=== PATIENT | male | born 1975 | race Caucasian/White ===

== ENCOUNTER 2019-05-27 17:12 | Inpatient (IN) ==
--- NOTE | 2019-05-27 17:37 | Emergency Department Note ---
Disposition Clinical Impression: Ischemic stroke Disposition: Admitted As Inpatient Condition: Good Referrals: NONE,PCP [Primary Care Provider] - Forms: ED Satisfaction Letter Time of Disposition: 21:45 Neuro HPI - General Chief Complaint: ED Neuro Symptoms/Deficit Stated Complaint: Neuro symptoms Time Seen by Provider: 05/27/19 17:19 Source: patient, other (Friends who accompanied him to hospital) Limitations: no limitations Nursing Notes Reviewed: Yes Vital Signs Reviewed: Yes - History of Present Illness HPI Narrative: Mr. Knox is a 44 yo man w/ uncomplicated PMH who presented to the ED on 05/27/19 for acute development of slurring, facial asymmetry noticed by friends at 1630 today when patient came over to their house. LKW 1700 yesterday (05/26). No one saw patient in the intervening time. He denies headache, vision changes, N/V, ataxia, LOC, CP, SOB, pain anywhere else in body. PMH of sinusitis. He is on suboxone. He has no history of cardiac events, stroke or neurological deficit. Social history significant for smoking 1-2 ppd [facility]. He denies alcohol or other drug use currently. - Related Data Home Medications: Home Medications Medication Instructions Recorded Confirmed Buprenorphine HCl/Naloxone HCl DAILY 05/27/19 [Suboxone 2 mg-0.5 mg Sl Film] Allergies/Adverse Reactions: Allergies Allergy/AdvReac Type Severity Reaction Status Date / Time sulfamethoxazole Allergy Anaphylaxis Verified 02/24/16 16:12 [From Bactrim] trimethoprim [From Bactrim] Allergy Anaphylaxis Verified 02/24/16 16:12 decongestion Allergy Anaphylaxis Uncoded 02/24/16 16:12 All systems ED: reviewed and negative except as stated. Neurological: Reports: weakness, confusion Past Medical History - Past Medical History Source: patient, obtained from family (Friends who accompanied him to ED), nursing notes reviewed Medical history: Reports: non-contributory Surgical history: Reports: sinus surgery Psychiatric history: Reports: no psych history - Social History Smoking Status: Current every day smoker Packs per day: 1-2 Smokeless Tobacco Status: No Alcohol use: Reports: none Drug use: Reports: other (Suboxone) Physical Exam PE Gen: Alert, responsive, anxious ENT: No mydriasis or miosis Left pupil brisk, right pupil sluggish constriction. Normal EOM bilaterally. No eyelid droop. Tongue deviation to right. No palpable trauma to head. Cardio: Regular rhythm, mild tachycardia on ausculation, no murmur. No chest wall tenderness on palpation, no cyanosis, no peripheral edema. Limbs well- perfused. Resp: Breath sounds equal and clear in all lung mcleod. No cough. No increased WoB. GI: Abdomen soft, nondistended, nontender in all quadrants. No bruit on auscultation. : No suprapubic tenderness or distention on palpation. No incontinence. MSK: No ecchymoses, no lesions, no rash on visual exam. Neuro: AOx2 - patient aware of name, age, unable to give or day of week/month. +aphasia, +dysphasia, +unilateral facial droop with forehead sparing, +strength 3/5 on RUE. LUE, RLE, LLE 5/5. No obvious sensory deficits. NIHSS 5. Psych: Appropriate affect - General Limitations: no limitations General appearance: alert, in no apparent distress Course Course Narrative: Presentation concerning for stroke. LKW outside TPA window as patient presented to ED about 23 hours after last known well. EKG, BMP, CBC ordered to rule out other causes of neurological deficits. CT head w/o contrast ordered to evaluate for stroke. Plan to admit patient with CT-A followup if initial CT negative for hemorrhage. BMP, CBC not significant. Initial CT positive for left frontal lobe and left insular cortex infarct. CT-A ordered, which was negative. Consulted with hospitalist personal development educator, Dr. Hinson, who agreed with plan to admit and requested UA plus urine toxicology, which was ordered. - Reevaluation(s) Reevaluation #1: Discussed negative CTA results in light of Dr. Morgan's earlier discussion of acute infarct on non-contrast CT head. Patient given option to stay here or be transferred to facility such as [facility]; he was informed that another facility would have the ability to do more invasive interventions if needed. Mr. Knox said he understood, and wanted to remain here at [facility]. Time: 21:35 Reevaluation #2: Consulted with hospitalist personal development educator, Dr. Tijerina, who agreed to admit patient and also requested a UA with tox screen. Time: 21:51 Vital Signs Temperature 97.9 F 05/27/19 17:13 Pulse Rate 106 07/24/19 17:13 Respiratory Rate 16 05/27/19 17:13 Blood Pressure 176/96 05/27/19 17:13 O2 Sat by Pulse Oximetry 99 05/27/19 17:13 Temperature 97.9 F 05/27/19 17:19 Pulse Rate 86 05/27/19 20:20 Respiratory Rate 18 05/27/19 20:20 Blood Pressure 123/83 05/27/19 20:20 O2 Sat by Pulse Oximetry 96 05/27/19 20:20 Oxygen Delivery Oxygen Delivery Room Air Neuro Symptoms/Deficit - Medical Records Medical records reviewed: Yes I reviewed the patient's medical records. - Lab Data Lab results reviewed: Yes I reviewed the patient's lab results. Result diagrams: 05/27/19 17:41 05/27/19 17:41 Lab Results 05/27/19 05/27/19 05/27/19 Range/Units 17:22 17:41 17:41 WBC 11.3 H (4.3-11.1) K/mcL RBC 5.21 (4.19-5.50) M/mcL Hgb 14.0 (12.9-16.9) g/dL Hct 43.6 (37.5-50.1) % MCV 83.7 (83.0-100.0) fL MCH 26.9 L (28.0-33.3) pg MCHC 32.1 (31.6-35.5) g/dL RDW 14.4 (11.5-14.5) % Plt Count 322 (140-400) K/mcL MPV 9.8 (9.4-12.4) fL PT (9.4-12.1) Seconds INR APTT (26.0-36.0) Seconds Sodium 138 (136-145) mEq/L Potassium 3.9 (3.5-5.1) mEq/L Chloride 102 (98-107) mEq/L Carbon Dioxide 24 (23-29) mEq/L BUN 8 (6-20) mg/dL Creatinine 0.84 (0.70-1.30) mg/dL Est GFR ( Amer) > 60 (> 60) Est GFR (Non-Af Amer) > 60 (> 60) BUN/Creatinine Ratio 10 (6-26) Glucose 113 H (70-105) mg/dL POC Glucose 117 H (70-99) mg/dL Calculated Osmolality 285 (280-300) Calcium 9.6 (8.6-10.3) mg/dL 05/27/19 Range/Units 17:41 WBC (4.3-11.1) K/mcL RBC (4.19-5.50) M/mcL Hgb (12.9-16.9) g/dL Hct (37.5-50.1) % MCV (83.0-100.0) fL MCH (28.0-33.3) pg MCHC (31.6-35.5) g/dL RDW (11.5-14.5) % Plt Count (140-400) K/mcL MPV (9.4-12.4) fL PT 12.6 H (9.4-12.1) Seconds INR 1.1 APTT 31.7 (26.0-36.0) Seconds Sodium (136-145) mEq/L Potassium (3.5-5.1) mEq/L Chloride (98-107) mEq/L Carbon Dioxide (23-29) mEq/L BUN (6-20) mg/dL Creatinine (0.70-1.30) mg/dL Est GFR ( Amer) (> 60) Est GFR (Non-Af Amer) (> 60) BUN/Creatinine Ratio (6-26) Glucose (70-105) mg/dL POC Glucose (70-99) mg/dL Calculated Osmolality (280-300) Calcium (8.6-10.3) mg/dL - Radiology Data Radiology results reviewed: Yes I reviewed the patient's radiology results. Head CT 05/27/19 17:29 IMPRESSION: Area of acute infarct involving the left insular cortex and left frontal lobe. No midline shift or acute hemorrhage. The report was called and discussed with Dr. Gonzalez of the emergency department 05/27/2019 at 7:27 p.m. D/ / 05/27/2019 19:34:29 June Mccormack MD / naye Interpreting Provider: June Mccormack MD Head CT 05/27/19 17:29 IMPRESSION: Area of acute infarct involving the left insular cortex and left frontal lobe. No midline shift or acute hemorrhage. The report was called and discussed with Dr. Gonzalez of the emergency department 05/27/2019 at 7:27 p.m. D/ / 05/27/2019 19:34:29 June Mccormack MD / naye Interpreting Provider: June Mccormack MD Head CTA 05/27/19 19:28 IMPRESSION: Unremarkable CTA of the neck. D/ / George Bond MD / George Bond MD Interpreting Provider: George Bond MD Neck CTA 05/27/19 19:28 IMPRESSION: Unremarkable CTA of the neck. D/ / George Bond MD / George Bond MD Interpreting Provider: George Bond MD - EKG Data EKG attestation: Yes I reviewed and interpreted this EKG. EKG shows normal: sinus rhythm Rate: tachycardia Rhythm: NSR [place]/QRS: normal Voltage: c/w atrial hypertrophy P Waves: LAE, KRISHNA When compared to previous EKG there are: previous EKG unavailable NIH Stroke Scale - Level of Consciousness LOC: Alert () - LOC Questions LOC Questions: Answers one correctly - LOC Commands LOC Commands: Performs both correctly - Best Gaze Best Gaze: Normal - Visual Visual: No visual loss - Facial Palsy Facial Palsy: Normal - Motor Arms Motor Arm-Left: No drift for 10 seconds Motor Arm-Right: Some effort against gravity, limb drifts to bed - Motor Legs Motor Leg-Left: No drift for 5 seconds Motor Leg-Right: No drift for 5 seconds - Limb Ataxia Limb Ataxia: Normal, No Ataxia - Sensory Sensory: Normal - Best Language Best Language: Mild to moderate aphasia. Examiner can identify picture from response - Dysarthria Dysarthria: Mild, slurs some words - Extinction and Inattention Extinction and Inattention: Normal - NIHSS Total Score NIHSS Total Score: 5 - Pupil Exam Left Pupil Reaction: Brisk Pupil Size: 3 Right Pupil Reaction: Sluggish Pupil Size: 3 TPA Checklist - LKW: 3-4.5 hrs Add. Warnings/Precautions Patient/family understanding: The patient/family members have been counseled and understood the risk, benefit, and alternatives of treatment.
[2019-05-27 17:59] LABS: Hematocrit 43.6 % (37.5-50.1); Mean Corpuscular HGB Conc 32.1 g/dL (31.6-35.5); Mean Corpuscular Hemoglobin 26.9 pg (28.0-33.3); Mean Corpuscular Volume 83.7 fL (83.0-100.0); Mean Platelet Volume 9.8 fL (9.4-12.4); Platelet Count 322 K/mcL (140-400); Red Blood Count 5.21 M/mcL (4.19-5.50); Red Cell Distribution Width 14.4 % (11.5-14.5); White Blood Count 11.3 K/mcL (4.3-11.1)
[2019-05-27 18:07] LABS: INR 1.1; Prothrombin Time 12.6 Seconds (9.4-12.1)
[2019-05-27 18:10] LABS: Activated Partial Thrombo Time 31.7 Seconds (26.0-36.0)
[2019-05-27 18:15] LABS: BUN/Creatinine Ratio 10 (6-26); Blood Urea Nitrogen 8 mg/dL (6-20); Calcium 9.6 mg/dL (8.6-10.3); Carbon Dioxide 24 mEq/L (23-29); Chloride 102 mEq/L (98-107); Glucose 113 mg/dL (70-105); Osmolality,Calculated 285 (280-300); Potassium 3.9 mEq/L (3.5-5.1); Sodium 138 mEq/L (136-145); eGFR For African Americans > 60 (> 60); eGFR For Non-African Americans > 60 (> 60)
[2019-05-27] MEDS ORDERED: Isovue-370 500 ML BOTTLE IVP ONE (19:28)
--- NOTE | 2019-05-27 20:19 | Emergency Department Note ---
Disposition Clinical Impression: Ischemic stroke Disposition: Admitted As Inpatient Condition: Good Referrals: NONE,PCP [Primary Care Provider] - Forms: ED Satisfaction Letter Time of Disposition: 20:33 General Adult HPI - General Chief complaint: ED Neuro Symptoms/Deficit Stated complaint: Neuro symptoms Time Seen by Provider: 05/27/19 17:19 Source: patient, family Limitations: no limitations - History of Present Illness Pain Scale: 0 - Related Data Home Medications Medication Instructions Recorded Confirmed Buprenorphine HCl/Naloxone HCl DAILY 05/27/19 [Suboxone 2 mg-0.5 mg Sl Film] Allergies Allergy/AdvReac Type Severity Reaction Status Date / Time sulfamethoxazole Allergy Anaphylaxis Verified 02/24/16 16:12 [From Bactrim] trimethoprim [From Bactrim] Allergy Anaphylaxis Verified 02/24/16 16:12 decongestion Allergy Anaphylaxis Uncoded 02/24/16 16:12 Past Medical History - Past Medical History Medical history: Reports: non-contributory Surgical history: Reports: sinus surgery Psychiatric history: Reports: no psych history - Social History Smoking Status: Current every day smoker Smokeless Tobacco Status: No Alcohol use: Reports: none Drug use: Reports: other (Suboxone) Physical Exam - General Limitations: no limitations General appearance: alert, in no apparent distress Course Vital Signs Temperature 97.9 F 05/27/19 17:13 Pulse Rate 106 05/27/19 17:13 Respiratory Rate 16 05/27/19 17:13 Blood Pressure 176/96 05/27/19 17:13 O2 Sat by Pulse Oximetry 99 05/27/19 17:13 Temperature 97.9 F 05/27/19 17:19 Pulse Rate 86 05/27/19 20:20 Respiratory Rate 18 05/27/19 20:20 Blood Pressure 123/83 05/27/19 20:20 O2 Sat by Pulse Oximetry 96 05/27/19 20:20 Oxygen Delivery Oxygen Delivery Room Air Medical Decision Making - Lab Data Result diagrams: 05/27/19 17:41 05/27/19 17:41 Lab Results 05/27/19 05/27/19 05/27/19 Range/Units 17:22 17:41 17:41 WBC 11.3 H (4.3-11.1) K/mcL RBC 5.21 (4.19-5.50) M/mcL Hgb 14.0 (12.9-16.9) g/dL Hct 43.6 (37.5-50.1) % MCV 83.7 (83.0-100.0) fL MCH 26.9 L (28.0-33.3) pg MCHC 32.1 (31.6-35.5) g/dL RDW 14.4 (11.5-14.5) % Plt Count 322 (140-400) K/mcL MPV 9.8 (9.4-12.4) fL PT (9.4-12.1) Seconds INR APTT (26.0-36.0) Seconds Sodium 138 (136-145) mEq/L Potassium 3.9 (3.5-5.1) mEq/L Chloride 102 (98-107) mEq/L Carbon Dioxide 24 (23-29) mEq/L BUN 8 (6-20) mg/dL Creatinine 0.84 (0.70-1.30) mg/dL Est GFR ( Amer) > 60 (> 60) Est GFR (Non-Af Amer) > 60 (> 60) BUN/Creatinine Ratio 10 (6-26) Glucose 113 H (70-105) mg/dL POC Glucose 117 H (70-99) mg/dL Calculated Osmolality 285 (280-300) Calcium 9.6 (8.6-10.3) mg/dL 05/27/19 Range/Units 17:41 WBC (4.3-11.1) K/mcL RBC (4.19-5.50) M/mcL Hgb (12.9-16.9) g/dL Hct (37.5-50.1) % MCV (83.0-100.0) fL MCH (28.0-33.3) pg MCHC (31.6-35.5) g/dL RDW (11.5-14.5) % Plt Count (140-400) K/mcL MPV (9.4-12.4) fL PT 12.6 H (9.4-12.1) Seconds INR 1.1 APTT 31.7 (26.0-36.0) Seconds Sodium (136-145) mEq/L Potassium (3.5-5.1) mEq/L Chloride (98-107) mEq/L Carbon Dioxide (23-29) mEq/L BUN (6-20) mg/dL Creatinine (0.70-1.30) mg/dL Est GFR ( Amer) (> 60) Est GFR (Non-Af Amer) (> 60) BUN/Creatinine Ratio (6-26) Glucose (70-105) mg/dL POC Glucose (70-99) mg/dL Calculated Osmolality (280-300) Calcium (8.6-10.3) mg/dL Attestation Statement - Attestation Attestation: I reviewed the residents documentation and agree with the residents assessment and plan of care. I have personally had face to face time with the patient. (Brief History, Brief Exam, and MDM) I personally supervised and was present for the moy/critical portions of the following procedures completed by the resident: EKG 44 year old male presents to the eD with complaints of right sided facial droop and aphasia that has been woresninr with LWK being yestesrday at 1700. Patient has been stable in his neuro defecits without improvement. It apppears that he had a stroke in the left front and insular area which would correlate with his symptoms. WE will add a CTA head and neck to his workup to help with decision in disposition to [facility] or admission here. ASA given.
[2019-05-27] MEDS ORDERED: Aspirin 325 MG TABLET PO ONE (20:33)
[2019-05-27 22:50] LABS: Bilirubin,Urine Negative (Negative); Blood,Urine Negative (Negative); Clarity,Urine Clear (Clear); Color,Urine Yellow (Yellow); Glucose,Urine (UA) Normal (Normal); Ketones,Urine Negative (Negative); Leukocyte Esterase,Urine Negative (Negative); Nitrite,Urine Negative (Negative); Protein,Urine Negative (Neg-Trace); Specific Gravity,Urine > 1.030 (1.010-1.025); Urobilinogen,Urine Normal (Normal)
[2019-05-27 23:06] LABS: Amphetamine Screen,Urine Negative ng/mL (Cutoff=1000); Barbiturate Screen,Urine Negative ng/mL (Cutoff=200); Benzodiazepines Screen,Urine Negative ng/mL (Cutoff=200); Cannabinoid Screen,Urine Negative ng/mL (Cutoff = 50); Cocaine Screen,Urine Negative ng/mL (Cutoff= 300); Opiate Screen,Urine Negative ng/mL (Cutoff=300); Phencyclidine Screen,Urine Negative ng/mL (Cutoff=25)
[2019-05-28] MEDS ORDERED: Naloxone 0.4 MG/ML INJ IVP PRN (02:16)
[2019-05-28] MEDS ORDERED: Ondansetron 4 MG/2 ML VIAL IVP PRN (02:16)
[2019-05-28] MEDS: 0.9 % Sodium Chloride w KCl 20 MEQ/1,000 ML MLS IVC SCH ×2 (02:59→18:32)
--- NOTE | 2019-05-28 03:39 | Internal Med History&Physical ---
Date of Encounter: 05/28/19 Time of Encounter: 01:35 Internal Medicine - H&P: HPI Chief complaint: right arm weakness; slurred speech Admitted From: Emergency Dept Plans for Post Hospital Care: Home History of present illness: Mr. Knox is a 44 year old male [facility]. He presented 24 hours after last known well with complaints of slurred speech, facial droop, and right-sided weakness. CT of the head was negative as well as CTA of the head and neck. He was deemed not an interventional candidate per ER and was admitted to the hospitalist service. Upon my assessment of the patient, patient states his symptoms started roughly 24 hours prior to presenting to ER. He denies any prior history of stroke. He denies any chronic health problems such as diabetes, heart disease, hypertension, or any history of arrhythmias. He is a former drug abuser but has been clean for roughly 7 months. He is maintained currently on Suboxone. I requested a urine drug screen in the ER which was negative except for buprinorphine. Regarding his drugs, he did not ever inject any medications. However, he did snort and orally ingested "all kinds of street drugs" in the past. He denies any prior history of heart problems from drugs. Family history is negative for any strokes. Past Med Surg Social Fam HX - Past Medical History Attestation: Yes The following information was validated with the patient. Source: patient, old records reviewed Medical history: no medical history Psychiatric history: no psych history - Past Surgical History Surgical History: sinus surgery - Social History Smoking Status: Current every day smoker (Currently on Suboxone) Packs per day: 1-2 Smokeless Tobacco Status: No Alcohol use: none Drug use: other (former drug abuse) Current living situation: Home Activity Level: Independent ambulation Recent Out of Country Travel Within the Last 8 Weeks: No - Family History Mother Living Status: Still Living Father Living Status: Still Living Internal Medicine - H&P: Meds Unable To Obtain [Unable to Obtain] 05/27/19 [History] Allergy/AdvReac Type Severity Reaction Status Date / Time sulfamethoxazole Allergy Anaphylaxis Verified 02/24/16 16:12 [From Bactrim] trimethoprim [From Bactrim] Allergy Anaphylaxis Verified 02/24/16 16:12 decongestion Allergy Anaphylaxis Uncoded 02/24/16 16:12 - Constitutional Constitutional: no chills, no fever(s), no night sweats - EENT Eyes: no blurry vision, no change in vision Ears: no ear pain, no tinnitus Nose, mouth and throat: no nasal congestion, no sinus pressure, no sore throat - Cardiovascular Cardiovascular ROS IM: no chest pain, no dyspnea, no dyspnea on exertion, no orthopnea, no syncope - Respiratory Respiratory: no cough, no dyspnea on exertion, no chest congestion, no excessive phlegm production, no change in phlegm color - Gastrointestinal Gastrointestinal: no abdominal pain, no diarrhea, no hematemesis, no hematochezia, no melena, no nausea, no vomiting - Genitourinary Genitourinary ROS male: no dysuria, no flank pain, no hematuria - Musculoskeletal Musculoskeletal ROS IM: no arthralgias, no back pain - Integumentary Integumentary IM: no rash, no jaundice - Neurological Neurological ROS: abnormal speech, focal weakness, no convulsions, no disequilibrium, no dizziness, no headache(s) - Psychiatric Psychiatric: no anxiety, no depression - Endocrine Endocrine IM: no cold intolerance, no heat intolerance, no polydipsia, no polyphagia, no polyuria - Allergic/Immunologic Allergic/Immunologic: no wheezing, no GI upset with certain foods - Constitutional Vitals: Temp Pulse Resp BP Pulse Ox 98.0 F 98 16 140/89 99 05/28/19 01:34 05/28/19 01:34 05/28/19 01:34 05/28/19 01:34 05/28/19 01:13 General appearance: Present: cooperative, A&O X 3, pleasant, no acute distress, answers questions appropriately Exam: see below - Head Head exam: Present: atraumatic, normal inspection - Eye Eye exam: Present: EOMI, PERRL. Absent: scleral icterus Pupils: Present: normal accommodation - ENT ENT exam: Present: mucous membranes dry, normal exam, normal oropharynx - Neck Neck exam general surgery: Present: full ROM, supple, trachea midline. Absent: tenderness, nuchal rigidity, thyromegaly - Respiratory Respiratory exam: Present: CTAB. Absent: chest wall tenderness, rales, rhonchi, wheezes - Cardiovascular Cardiovascular exam: Present: RRR, +S1, +S2. Absent: diastolic murmur, systolic murmur - GI/Abdominal GI/Abdominal exam: Present: normal bowel sounds, soft. Absent: guarding, hepatomegaly, mass, rebound, splenomegaly, tenderness - Extremities Exam Extremities exam: Present: full ROM, normal capillary refill, warm, radial pulses palpable and symmetrical. Absent: calf tenderness, joint swelling, pedal edema, tenderness - Back Exam Back exam: Present: normal inspection. Absent: CVA tenderness (L), CVA tenderness (R) - Neurological Exam Neurological exam: Present: alert, oriented X3, facial droop, speech deficit. Absent: strengths equal and symetr throughout (right arm weakness; parasthesias) - Psychiatric Psychiatric exam: Present: normal affect, normal mood - Skin Skin exam: Present: dry, intact, warm Internal Med - H&P Results - Labs CBC & Chem 7: 05/27/19 17:41 05/27/19 17:41 Labs: Short CBC 05/27/19 Range/Units 17:41 WBC 11.3 H (4.3-11.1) K/mcL Hgb 14.0 (12.9-16.9) g/dL Hct 43.6 (37.5-50.1) % Plt Count 322 (140-400) K/mcL BMP 05/27/19 17:41 Sodium 138 Potassium 3.9 Chloride 102 Carbon Dioxide 24 BUN 8 Creatinine 0.84 Glucose 113 H Calcium 9.6 Urine 05/27/19 Range/Units 22:40 Urine Color Yellow (Yellow) Urine Clarity Clear (Clear) Urine pH 6.0 (5.0-8.0) pH Units Ur Specific [place] > 1.030 H (1.010-1.025) Urine Protein Negative (Neg-Trace) mg/dL Urine Glucose (UA) Normal (Normal) mg/dL - EKG Data -: EKG Interpreted by Myself - EKG Data Prior EKG available for review: no EKG comments: 05/28/19 04:02 LUCIANO WERNER - Impressions ITS Impressions Head CT 05/27/19 17:29 IMPRESSION: Area of acute infarct involving the left insular cortex and left frontal lobe. No midline shift or acute hemorrhage. The report was called and discussed with Dr. Gonzalez of the emergency department 05/27/2019 at 7:27 p.m. D/ / 05/27/2019 19:34:29 June Mccormack MD / lgray Interpreting Provider: June Mccormack MD Head CTA 05/27/19 19:28 IMPRESSION: Unremarkable CTA of the neck. D/ / George Bond MD / George Bond MD Interpreting Provider: George Bond MD Neck CTA 05/27/19 19:28 IMPRESSION: Unremarkable CTA of the neck. D/ / George Bond MD / George Bond MD Interpreting Provider: George Bond MD - Diagnostic Studies CT scan - head Status: image reviewed by me (acute frontal lobe infarct) - Assessment and Plan (1) Ischemic stroke Current Visit: Yes Status: Acute Assessment and plan: 1. Will proceed with stroke protocol. 2. Consult PT/OT/ST, and neurology. 3. Strict NPO until ST consult. 4. MRI brain, ECHO ordered. 5. Consult neurology and social services counselor. 6. Rectal aspirin for now until cleared to take PO meds. (2) Illicit drug use Current Visit: Yes Status: Chronic Assessment and plan: 1. UDS negative except for Suboxone. 2. Will need to confirm dose and resume in order to avoid withdrawal. 3. Concern for cardiomyopathy given history of drug abuse; proced with ECHO and stroke work up as noted above. (3) DVT prophylaxis Current Visit: Yes Status: Acute Assessment and plan: 1. Heparin SQ.
[2019-05-28 03:45] LABS: Basophils % 0.4 %; Eosinophils # 0.2 K/mcL (0.0-0.6); Eosinophils % 2.1 %; Hematocrit 41.1 % (37.5-50.1); Hemoglobin 13.3 g/dL (12.9-16.9); Immature Granulocytes % 0.2 % (0-4); Lymphocytes # 3.4 K/mcL (0.6-4.6); Lymphocytes % 36.3 %; Mean Corpuscular HGB Conc 32.4 g/dL (31.6-35.5); Mean Corpuscular Hemoglobin 27.4 pg (28.0-33.3); Mean Corpuscular Volume 84.7 fL (83.0-100.0); Monocytes # 0.5 K/mcL (0.0-1.3); Monocytes % 5.7 %; Neutrophils # 5.2 K/mcL (1.6-8.9); Platelet Count 281 K/mcL (140-400); Red Blood Count 4.85 M/mcL (4.19-5.50); Red Cell Distribution Width 14.1 % (11.5-14.5); Segmented Neutrophils % 55.3 %; White Blood Count 9.4 K/mcL (4.3-11.1)
[2019-05-28 03:54] LABS: INR 1.2; Prothrombin Time 13.2 Seconds (9.4-12.1)
[2019-05-28 03:56] LABS: BUN/Creatinine Ratio 13 (6-26); Blood Urea Nitrogen 9 mg/dL (6-20); Carbon Dioxide 23 mEq/L (23-29); Chloride 108 mEq/L (98-107); Glucose 94 mg/dL (70-105); Potassium 3.5 mEq/L (3.5-5.1); Sodium 138 mEq/L (136-145); eGFR For African Americans > 60 (> 60); eGFR For Non-African Americans > 60 (> 60)
[2019-05-28 03:57] LABS: Activated Partial Thrombo Time 32.9 Seconds (26.0-36.0); Alanine Aminotransferase 7 Units/L (7-52); Albumin 3.9 g/dL (3.5-5.7); Albumin/Globulin Ratio 1.3 (1.1-2.2); Alkaline Phosphatase 60 Units/L (34-104); Aspartate Amino Transferase 8 Units/L (13-39); Bilirubin,Total 0.7 mg/dL (0.3-1.0); Calcium 9.1 mg/dL (8.6-10.3); Chol/HDL Ratio 7.2 (0-4.9); Cholesterol 151 mg/dL (< 200); Globulin 2.9 g/dL (2.4-3.5); HDL Cholesterol 21 mg/dL (40-59); LDL Cholesterol,Calculated 103 mg/dL (0-99); Osmolality,Calculated 284 (280-300); Total Protein 6.8 g/dL (6.4-8.9); Triglycerides 134 mg/dL (< 150)
[2019-05-28] MEDS: *HR* Heparin 5,000 UNIT/ML VIAL SQ SCH ×2 (06:50→18:31)
[2019-05-28 09:55] LABS: Chol/HDL Ratio 7.2 (0-4.9); Cholesterol 158 mg/dL (< 200); HDL Cholesterol 22 mg/dL (40-59); LDL Cholesterol,Calculated 112 mg/dL (0-99); Triglycerides 120 mg/dL (< 150); Troponin I < 0.03 ng/mL (< 0.04)
[2019-05-28 10:08] LABS: Thyroid Stimulating Hormone 1.403 mcIU/mL (0.340-5.600)
[2019-05-28 10:11] LABS: Estimated Average Glucose 126 mg/dl
--- NOTE | 2019-05-28 10:32 | Internal Med Progress Note ---
Hospitalist Progress Note - Encounter Date of Encounter: 05/28/19 Time of Encounter: 10:29 - Subjective Interval History: the patient was seen and examine at bedside. has slurred speech with right sided facial droop and right sided weakness no numbness or tingling MRI of brain show 1. Moderate size acute infarct involving the left frontal lobe and left insular cortex. Additional smaller areas of acute infarct involving the anterior left frontal lobe. 2. Regional sulcal effacement with mass effect on the left lateral ventricle. No evidence of midline shift. 3. Otherwise, no acute intracranial abnormality. Neurology on board - Exam Vitals: Temp Pulse Resp BP Pulse Ox 97.8 F 63 16 133/76 93 05/28/19 05:30 05/28/19 05:30 05/28/19 05:30 05/28/19 05:30 05/28/19 03:29 Exam: Physical examination: Gen.: Patient is alert , mildly aphasic not in respiratory distress of pain HEENT: perrla , EOMI, no thyroid gland enlargement, no neck mass, supple neck Heart: S1 and S2 elva, normal sinus rhythm, no cardiac murmur no gallop rhythm Chest: Air entry equal bilaterally, clear chest, no wheezing, crackles or crepitation Abdomen: Soft nontender nondistended positive bowel sounds, no organomegaly Extremities: No pitting edema, peripheral pulses palpable, no cyanosis tenderness Neuro: right facial droop with right sided weakness , DVT Prophylaxis: heparin - Summary of Assessment and Plan Summary of Assessment and Plan: (1) acute Ischemic stroke Current Visit: Yes Status: Acute Assessment and plan: MRI of head show: 1. Moderate size acute infarct involving the left frontal lobe and left insular cortex. Additional smaller areas of acute infarct involving the anterior left frontal lobe. 2. Regional sulcal effacement with mass effect on the left lateral ventricle. No evidence of midline shift. 3. Otherwise, no acute intra cranial abnormality. pass swallow on aspirin and high intensity statin A1c 6 indicate prediabetic on stroke protocol. Consult PT/OT/ST, and neurology. echo pending CTA head and neck unremarkable check homocysteine, B12 and TSH consider consult cardiology to r/o cardiac embolic event GI and dvt PPX (2) Illicit drug use Current Visit: Yes Status: Chronic Assessment and plan: 1. UDS negative except for Suboxone. 3. Concern for cardiomyopathy given history of drug abuse; proced with ECHO and stroke work up as noted above. (3) DVT prophylaxis Current Visit: Yes Status: Acute Assessment and plan: 1. Heparin SQ. - Time Spent with Patient Total time spent is greater than 50% in coordination of care (as documented) at patient's floor/unit and/or counseling patient: Internal Medicine: Result - Labs CBC & Chem 7: 05/28/19 02:46 05/28/19 02:46 Labs: Short CBC 05/27/19 05/28/19 Range/Units 17:41 02:46 WBC 11.3 H 9.4 (4.3-11.1) K/mcL Hgb 14.0 13.3 (12.9-16.9) g/dL Hct 43.6 41.1 (37.5-50.1) % Plt Count 322 281 (140-400) K/mcL Neutrophils # 5.2 (1.6-8.9) K/mcL BMP 05/27/19 05/28/19 17:41 02:46 Sodium 138 138 Potassium 3.9 3.5 Chloride 102 108 H Carbon Dioxide 24 23 BUN 8 9 Creatinine 0.84 0.68 L Glucose 113 H 94 Calcium 9.6 9.1 Cardiac Enzymes 05/28/19 05/28/19 Range/Units 02:46 08:51 Troponin I < 0.03 < 0.03 (< 0.04) ng/mL Liver Function 05/28/19 Range/Units 02:46 Total Bilirubin 0.7 (0.3-1.0) mg/dL AST 8 L (13-39) Units/L ALT 7 (7-52) Units/L Alkaline Phosphatase 60 (34-104) Units/L Albumin 3.9 (3.5-5.7) g/dL Urine 05/27/19 Range/Units 22:40 Urine Color Yellow (Yellow) Urine Clarity Clear (Clear) Urine pH 6.0 (5.0-8.0) pH Units Ur Specific [place] > 1.030 H (1.010-1.025) Urine Protein Negative (Neg-Trace) mg/dL Urine Glucose (UA) Normal (Normal) mg/dL - ABG Interpretation ABG results: PT/INR, D-dimer PT 13.2 Seconds (9.4-12.1) H 05/28/19 02:46 - Impressions Impressions Head CT 05/27/19 17:29 IMPRESSION: Area of acute infarct involving the left insular cortex and left frontal lobe. No midline shift or acute hemorrhage. The report was called and discussed with Dr. Gonzalez of the emergency department 05/27/2019 at 7:27 p.m. D/ / 05/27/2019 19:34:29 June Mccormack MD / naye Interpreting Provider: June Mccormack MD Head CTA 05/27/19 19:28 IMPRESSION: Unremarkable CTA of the neck. D/ / George Bond MD / George Bond MD Interpreting Provider: George Bond MD Neck CTA 05/27/19 19:28 IMPRESSION: Unremarkable CTA of the neck. D/ / George Bond MD / George Bond MD Interpreting Provider: George Bond MD Brain MRI 05/28/19 02:16 IMPRESSION: 1. Moderate size acute infarct involving the left frontal lobe and left insular cortex. Additional smaller areas of acute infarct involving the anterior left frontal lobe. 2. Regional sulcal effacement with mass effect on the left lateral ventricle. No evidence of midline shift. 3. Otherwise, no acute intracranial abnormality. 4. Evidence of prior sinus surgery with scattered mucosal thickening of the paranasal sinuses. These results were sent to the [facility] ([facility] on 05/28/2019 at 8:08 am to be communicated to the referring/covering health care provider/office. D/ / Thierry Riddle MD / Thierry Riddle MD Interpreting Provider: Thierry Riddle MD Consult Discharge Plan - Plan Referrals: NONE,PCP [Primary Care Provider] -
--- NOTE | 2019-05-28 11:20 | Neurology - Consult Note ---
<Isak Núñez J - Last Filed: 05/28/19 12:38> Date of Encounter: 05/28/19 Time of Encounter: 11:13 Assessment and Plan (1) CVA (cerebral vascular accident) Current Visit: Yes Status: Acute Patient presented with right-sided facial droop, slurred speech, right arm/leg weakness and difficulty with word finding Outside of the window for TPA with LKW approximately 24 hours prior to arrival The neurological examination confirms the diffuse right-sided weakness, facial droop and slurred speech; no other focal deficits found Pattern on MRI looks embolic; given MRI patterns there are concerns for PFO Sx correlate with MRI findings CTA of head/neck negative for flow limiting stenosis Risk factors of HTN NIH-5 PLAN: Hypercoagulable workup TTE; if no thrombus or PFO found consider ADITYA Will need neurology f/u on discharge Rec PT/OT and speech Start aspirin and Lipitor; will need to be on long-term Neurological assessments and NIHSS per protocol Discussed lifestyle modifications and secondary stroke prevention measures Continue medical and supportive care Neuro to f/u in am; call should any urgent needs arise Qualifiers: CVA mechanism: unspecified Qualified Code(s): I63.9 - Cerebral infarction, unspecified History of Present Illness Chief complaint: Acute CVA HPI: Mr. Knox is a 44 year old male with a PMH of HTN. Presented to the ED with complaints of slurred speech, right facial droop and right-sided weakness occurring approximately 24 hours prior to arrival. He denies any previous history of stroke. The only other pertinent medical history is previous drug abuse but he denies any IVDU reporting only oral ingestion. Mr. Blackburn reports that his symptoms he can at approximately 5 PM on Saturday evening. He states that he had a sudden onset of right facial droop, slurred speech and difficulty with word finding. This progressed to right-sided weakness prompting him to seek care in the ED later. By the time of arrival he was outside of the window for TPA. An MRI of the brain was obtained and was positive for what appears to be an embolic infarct of moderate size in the left frontal lobe and left insular cortex with additional smaller areas of acute infarct involving the anterior l eft frontal lobe. There is also regional's sulcal effacement with mass effect in the left lateral ventricle. Past Med Surg Social Fam HX - Past Medical History Medical history: no medical history Psychiatric history: no psych history - Past Surgical History Surgical History: sinus surgery - Social History Smoking Status: Current every day smoker (Currently on Suboxone) Packs per day: 1-2 Smokeless Tobacco Status: No Alcohol use: none Drug use: other (former drug abuse) - Family History Mother Living Status: Still Living Father Living Status: Still Living Medications and Allergies No Known Home Drugs 05/28/19 [History] Allergy/AdvReac Type Severity Reaction Status Date / Time sulfamethoxazole Allergy Anaphylaxis Verified 05/28/19 10:53 [From Bactrim] trimethoprim [From Bactrim] Allergy Anaphylaxis Verified 05/28/19 10:53 decongestion Allergy Anaphylaxis Uncoded 05/28/19 10:53 All Systems: The remainder of the systems were reviewed and are negative Review of Systems: REVIEW OF SYSTEMS NEUROLOGIC: Negative for any blurry vision, blind spots, double vision, dysphagia, hemiparesis, hemisensory deficits POSITIVE-right facial droop, slurred speech, right arm and leg weakness and difficulty with word finding CARDIAC: Negative for any chest pain, dyspnea, peripheral edema or palpitations MUSCULOSKELETAL: Positive-loss of strength right arm and leg Physical Examination - Vital Signs Vital Signs: Initial Vital Signs Temp Pulse Resp BP Pulse Ox 97.9 F 106 16 176/96 99 05/27/19 17:13 05/27/19 17:13 05/27/19 17:13 05/27/19 17:13 05/27/19 17:13 - Exam Exam: Examination: General Examination: *CONSTITUTIONAL: Alert and oriented x3, no acute distress *GENERAL APPEARANCE OF PATIENT appears healthy and well groomed *EYES: pupils equal, round, reactive to light and accommodation, conjunctiva clear without masses or ulcerations, fundi normal. *CARDIOVASCULAR: RRR,no peripheral edema, distal temperature normal, dors chuy pedis pulses normal. Refer to vital signs * MUSCULOSKELETAL: *GAIT AND STATION: Deferred *ASSESSMENT OF MUSCLE STRENGTH IN THE UPPER AND LOWER EXTREMITIES left deltoid, bicep, tricep, ore dressing engineer strength, hip flexors ,anterior tibialis, dorsoflexion of the foot 5/5; right deltoid, bicep, tricep, ore dressing engineer strength, hip flexors ,anterior tibialis, dorsoflexion of the foot 4/5 *MUSCLE TONE IN THE UPPER AND LOWER EXTREMITIES normal. No abnormal movements, fasciculations or atrophy identified. Neurological: *ORIENTATION to person, situation, time and place *LANGUAGE AND FUNCTION no significant aphasia or dysarthia was noted. *ATTENTION AND CONCENTRATION are normal *LANGUAGE FUNCTION slurred speech *FUND OF KNOWLEDGE difficulty with word finding *MENTAL attention span and concentration normal. *CN II optic fundi were normal, no papilledema noted. *CN III,IV, PERRLA extraocular eye movements were full, no nystagmus and no ptosis noted. *CN V right facial droop *CN VII shows normal facial movement symmetrically, upper and lower bilaterally. *CN VIII shows no significant hearing loss on exam *CN IX-X palate elevated symmetrically *CN XI normal strength in the sternocleidomastoid muscles, symmetrical shoulder shrugging. *CN XII rightward deviation of tongue *SENSORY EXAMINATION light touch intact *REFLEXES: deep tendon reflexes were normal and symmetrical , grade 2/4 diffusely, no pathological reflexes were noted. *CEREBELLAR TESTING right finger to nose dysmetria *PAIN LEVEL 0/10 Results - Laboratory Findings CBC and BMP: 05/28/19 02:46 05/28/19 02:46 Abnormal lab findings: Abnormal lab results WBC 11.3 K/mcL (4.3-11.1) H 05/27/19 17:41 MCH 27.4 pg (28.0-33.3) L 05/28/19 02:46 PT 13.2 Seconds (9.4-12.1) H 05/28/19 02:46 Chloride 108 mEq/L (98-107) H 05/28/19 02:46 Creatinine 0.68 mg/dL (0.70-1.30) L 05/28/19 02:46 Glucose 113 mg/dL (70-105) H 05/27/19 17:41 POC Glucose 117 mg/dL (70-99) H 05/27/19 17:22 Hemoglobin A1c 6.0 % (-5.6) H 05/28/19 02:46 AST 8 Units/L (13-39) L 05/28/19 02:46 LDL Cholesterol, Calc 112 mg/dL (0-99) H 05/28/19 08:51 HDL Cholesterol 22 mg/dL (40-59) L 05/28/19 08:51 Cholesterol/HDL Ratio 7.2 (0-4.9) H 05/28/19 08:51 Ur Specific [place] > 1.030 (1.010-1.025) H 05/27/19 22:40 Ur Buprenorphine Scrn Positive ng/mL (Cutoff=5) H 05/27/19 22:40 - Diagnostic Findings Additional findings: MR/MR head/brain wo con IMPRESSION: 1. Moderate size acute infarct involving the left frontal lobe and left insular cortex. Additional smaller areas of acute infarct involving the anterior left frontal lobe. 2. Regional sulcal effacement with mass effect on the left lateral ventricle. No evidence of midline shift. 3. Otherwise, no acute intracranial abnormality. 4. Evidence of prior sinus surgery with scattered mucosal thickening of the paranasal sinuses. Consult Discharge Plan - Plan Referrals: NONE,PCP [Primary Care Provider] - <Margarito Aguilar - Last Filed: 05/28/19 19:14> Date of Encounter: 05/28/19 Assessment and Plan (1) CVA (cerebral vascular accident) Current Visit: Yes Status: Acute I have personally performed a [id number] assessment of the patient and have reviewed the PA/WORKERS COMPENSATION DEFENSE ATTORNEY note. My impressions are as follows: Echocardiogram does reveal the presence of a PFO. In this case I would certainly recommend ultimate PFO closure, as well as coagulation. I did explain to this patient the importa nce of compliance and strokes can result in significant morbidity and mortality. I would still proceed with the hypercoagulable workup. We will reevaluate him in the morning Qualifiers: CVA mechanism: unspecified Qualified Code(s): I63.9 - Cerebral infarction, unspecified History of Present Illness HPI: The chart was reviewed, the patient was seen and examined. The case was discussed with the REDEVELOPMENT SPECIALIST. I agree with his documentation as outlined above. Echocardiogram did reveal a PFO. All Systems: The remainder of the systems were reviewed and are negative Review of Systems: Balance of the systems review is negative. Physical Examination - Vital Signs Vital Signs: Initial Vital Signs Temp Pulse Resp BP Pulse Ox 97.9 F 106 16 176/96 99 05/27/19 17:13 05/27/19 17:13 05/27/19 17:13 05/27/19 17:13 05/27/19 17:13 - Exam Exam: I have personally performed a uaaz-[id number]-[id number] assessment of the patient and have r eviewed the PA/WORKERS COMPENSATION DEFENSE ATTORNEY note. My impressions are as follows: I agree with the neurologic examination is documented above. Results - Laboratory Findings CBC and BMP: 05/28/19 02:46 05/28/19 02:46 Abnormal lab findings: Abnormal lab results WBC 11.3 K/mcL (4.3-11.1) H 05/27/19 17:41 MCH 27.4 pg (28.0-33.3) L 05/28/19 02:46 PT 13.2 Seconds (9.4-12.1) H 05/28/19 02:46 Chloride 108 mEq/L (98-107) H 05/28/19 02:46 Creatinine 0.68 mg/dL (0.70-1.30) L 05/28/19 02:46 Glucose 113 mg/dL (70-105) H 05/27/19 17:41 POC Glucose 117 mg/dL (70-99) H 05/27/19 17:22 Hemoglobin A1c 6.0 % (-5.6) H 05/28/19 02:46 AST 8 Units/L (13-39) L 05/28/19 02:46 LDL Cholesterol, Calc 112 mg/dL (0-99) H 05/28/19 08:51 HDL Cholesterol 22 mg/dL (40-59) L 05/28/19 08:51 Cholesterol/HDL Ratio 7.2 (0-4.9) H 05/28/19 08:51 Ur Specific [place] > 1.030 (1.010-1.025) H 05/27/19 22:40 Ur Buprenorphine Scrn Positive ng/mL (Cutoff=5) H 05/27/19 22:40
[2019-05-28] MEDS: Aspirin 81 MG TAB.CHEW PO SCH (12:12)
--- NOTE | 2019-05-28 13:30 | Event Note ---
Date of Encounter: 05/28/19 Time of Encounter: 13:30 - Cardiology Event Note ADITYA now pending tomorrow per discussion with Dr. Chapa. Discussed with primary service. Discussed with Dr. Iverson as well. Consider Cardiology c/s tomorrow based on ADITYA results.
--- NOTE | 2019-05-28 13:42 | Electrocardiograph Report ---
[facility] Test Date: 2019-05-27 Pat Name: Jaziel Knox Department: EXAM8 Room: 2NE22 Gender: M Visual Stylist: : 1975 Requested By: [id number] Order Number: [id number] Reading MD: Giancarlo Mcmanus Measurements Intervals [place] Rate: 103 P: 64 DC: 135 QRS: -2 QRSD: 93 T: 59 QT: 352 QTc: 461 Interpretive Statements Sinus tachycardia LAE, consider biatrial enlargement Abnormal R-wave progression, early transition Electronically Signed On 05-28-2019 13:40:11 EDT by Giancarlo Mcmanus
--- NOTE | 2019-05-28 16:51 | Event Note ---
Date of Encounter: 05/28/19 Time of Encounter: 16:49 WAS PAGED that patient wants leave AMA i went and spoke with patient and explained to him high risk on his health by leaveing AMA , as echo show mobile echogenic mas inside atria could represent thrombus and need TTE tomorrow to confirm diagnosis patient looks alert awake and he seems understanding, he said will waiy for his mother to come to discuss with her
[2019-05-28] MEDS: Nicotine 21 MG PATCH.TD24 TD SCH (18:56)
[2019-05-29] MEDS: *HR* Heparin 5,000 UNIT/ML VIAL SQ SCH ×2 (06:25→17:07)
[2019-05-29] MEDS ORDERED: 0.9 % Sodium Chloride 500 ML IVC ONE (07:22)
[2019-05-29] MEDS ORDERED: Lidocaine Viscous Oral Soln 15 ML SOLUTION MM PRN (07:22)
[2019-05-29] MEDS ORDERED: *HR* FentaNYL (PF) 100 MCG/2 ML VIAL IVP PRN (07:22)
[2019-05-29] MEDS: *HR* Midazolam HCl 5 MG/5 ML VIAL IVP PRN ×2 (08:30→08:35)
[2019-05-29] MEDS: Aspirin 81 MG TAB.CHEW PO SCH (10:06)
[2019-05-29] MEDS: Nicotine 21 MG PATCH.TD24 TD SCH (10:06)
[2019-05-29 10:22] LABS: Hematocrit 39.8 % (37.5-50.1); Hemoglobin 12.9 g/dL (12.9-16.9); Mean Corpuscular HGB Conc 32.4 g/dL (31.6-35.5); Mean Corpuscular Hemoglobin 26.9 pg (28.0-33.3); Mean Corpuscular Volume 83.1 fL (83.0-100.0); Mean Platelet Volume 9.9 fL (9.4-12.4); Platelet Count 257 K/mcL (140-400); Red Blood Count 4.79 M/mcL (4.19-5.50); Red Cell Distribution Width 13.9 % (11.5-14.5); White Blood Count 9.3 K/mcL (4.3-11.1)
[2019-05-29 10:36] LABS: Alanine Aminotransferase 6 Units/L (7-52); Albumin 3.6 g/dL (3.5-5.7); Albumin/Globulin Ratio 1.3 (1.1-2.2); Alkaline Phosphatase 62 Units/L (34-104); Aspartate Amino Transferase 9 Units/L (13-39); BUN/Creatinine Ratio 18 (6-26); Bilirubin,Total 0.7 mg/dL (0.3-1.0); Blood Urea Nitrogen 13 mg/dL (6-20); Calcium 8.9 mg/dL (8.6-10.3); Carbon Dioxide 23 mEq/L (23-29); Chloride 107 mEq/L (98-107); Globulin 2.7 g/dL (2.4-3.5); Glucose 93 mg/dL (70-105); Magnesium 1.9 mg/dL (1.6-2.6); Osmolality,Calculated 290 (280-300); Phosphorous 2.1 mg/dL (2.7-4.5); Sodium 140 mEq/L (136-145); Total Protein 6.3 g/dL (6.4-8.9); eGFR For African Americans > 60 (> 60); eGFR For Non-African Americans > 60 (> 60)
--- NOTE | 2019-05-29 12:09 | Internal Med Progress Note ---
Hospitalist Progress Note - Encounter Date of Encounter: 05/29/19 Time of Encounter: 12:05 - Subjective Interval History: the patient was seen and examined at bedside. denies CP or SOB ADITYA showed PEO with bidirectional shunt on color doppler i did consult cardiology ef 55% - Exam Vitals: Temp Pulse Resp BP Pulse Ox 97.6 F 70 20 155/87 98 05/29/19 07:35 05/29/19 07:35 05/29/19 07:35 05/29/19 07:35 05/29/19 07:35 Exam: Physical examination: Gen.: Patient is alert , mildly aphasic not in respiratory distress of pain HEENT: perrla , EOMI, no thyroid gland enlargement, no neck mass, supple neck Heart: S1 and S2 elva, normal sinus rhythm, no cardiac murmur no gallop rhythm Chest: Air entry equal bilaterally, clear chest, no wheezing, crackles or crepitation Abdomen: Soft nontender nondistended positive bowel sounds, no organomegaly Extremities: No pitting edema, peripheral pulses palpable, no cyanosis tenderness Neuro: right facial droop with right sided weakness , DVT Prophylaxis: heparin - Summary of Assessment and Plan Summary of Assessment and Plan: (1) acute Ischemic stroke Current Visit: Yes Status: Acute Assessment and plan: MRI of head show: 1. Moderate size acute infarct involving the left frontal lobe and left insular cortex. Additional smaller areas of acute infarct involving the anterior left frontal lobe. 2. Regional sulcal effacement with mass effect on the left lateral ventricle. No evidence of midline shift. 3. Otherwise, no acute intra cranial abnormality. pass swallow on aspirin and high intensity statin A1c 6 indicate pre-diabetic on stroke protocol. Consult PT/OT/ST, and neurology. ADITYA show PFO with bidirectional shunt on color doppler, ef 55% CTA head and neck unremarkable check homocysteine, B12 and TSH wnl consult cardiology GI and dvt PPX (2) Illicit drug use Current Visit: Yes Status: Chronic Assessment and plan: 1. UDS negative except for Suboxone. 3. ef 55% on ADITYA (3) DVT prophylaxis Current Visit: Yes Status: Acute Assessment and plan: 1. Heparin SQ. smoking abuse on nicotine patch - Time Spent with Patient Total time spent is greater than 50% in coordination of care (as documented) at patient's floor/unit and/or counseling patient: Internal Medicine: Result - Labs CBC & Chem 7: 07/26/19 09:54 05/29/19 09:54 Labs: Short CBC 05/29/19 Range/Units 09:54 WBC 9.3 (4.3-11.1) K/mcL Hgb 12.9 (12.9-16.9) g/dL Hct 39.8 (37.5-50.1) % Plt Count 257 (140-400) K/mcL BMP 05/29/19 09:54 Sodium 140 Potassium 4.0 Chloride 107 Carbon Dioxide 23 BUN 13 Creatinine 0.71 Glucose 93 Calcium 8.9 Cardiac Enzymes 05/28/19 Range/Units 14:12 Troponin I < 0.03 (< 0.04) ng/mL Liver Function 05/29/19 Range/Units 09:54 Total Bilirubin 0.7 (0.3-1.0) mg/dL AST 9 L (13-39) Units/L ALT 6 L (7-52) Units/L Alkaline Phosphatase 62 (34-104) Units/L Albumin 3.6 (3.5-5.7) g/dL - ABG Interpretation ABG results: PT/INR, D-dimer PT 13.2 Seconds (9.4-12.1) H 05/28/19 02:46 - Impressions Impressions Echocardiogram 05/28/19 02:20 Impressions: LVEF 55%. Normal left ventricular diastolic function. Normal right ventricular structure and function. No significant valvular dysfunction. No pulmonary hypertension. Tiny mobile echodensity attached to the tip of aortic valve leaflets may represent Lambl's excrescence (Image #[id number]). Consider ADITYA in this clinical scenario. There is a PFO by agitated saline contrast. Left Ventricular Wall Motion: Rest Echo Findings All wall segments showed normal motion. Findings: Study Quality * Technically adequate exam. ECG Findings * Sinus bradycardia. Left Ventricle * LVEF 55%. * Normal LV chamber size, wall thickness and function. * Normal left ventricular diastolic function. Right Ventricle * Normal right ventricular structure and function. Left Atrium * Normal left atrial size. Right Atrium * Normal right atrial size. Aortic Valve * No aortic regurgitation. * Aortic valve leaflet morphology not well visualized. * In the 5-CH view, there is seen a tiny mobile echodensity appearing attached to the tip of the aortic valve leaflets which may represent Lambl's excrescence. * No aortic stenosis. Mitral Valve * No mitral regurgitation. * Normal mitral valve structure. * No mitral stenosis. Tricuspid Valve * Normal tricuspid valve structure. * No tricuspid regurgitation. * Estimated RA pressure is 3 mmHg. * No pulmonary hypertension. Pulmonic Valve * Pulmonic valve is not well visualized. * No pulmonic stenosis. * No pulmonic regurgitation. Pulmonary Artery * Pulmonary artery not well visualized. Aorta * Normally sized aortic root. Pericardium * There is no pericardial effusion present. Interatrial Septum * There is a PFO by agitated saline contrast, IVC * Normal IVC dimensions and inspiratory collapse. Consult Discharge Plan - Plan Referrals: NONE,PCP [Primary Care Provider] -
--- NOTE | 2019-05-29 13:37 | Neurology - Consult Note ---
Date of Encounter: 05/29/19 Time of Encounter: 13:16 Assessment and Plan (1) CVA (cerebral vascular accident) Current Visit: Yes Status: Acute Qualifiers: CVA mechanism: unspecified Qualified Code(s): I63.9 - Cerebral infarction, unspecified History of Present Illness Chief complaint: acute CVA HPI: Mr. Knox is a 44 year old male Past Med Surg Social Fam HX - Past Medical History Medical history: no medical history Psychiatric history: no psych history - Past Surgical History Surgical History: sinus surgery - Social History Smoking Status: Current every day smoker Packs per day: 1.0 Smokeless Tobacco Status: No Alcohol use: none Drug use: other - Family History Mother Living Status: Still Living Father Living Status: Still Living Medications and Allergies No Known Home Drugs 05/28/19 [History] Allergy/AdvReac Type Severity Reaction Status Date / Time sulfamethoxazole Allergy Anaphylaxis Verified 05/28/19 10:53 [From Bactrim] trimethoprim [From Bactrim] Allergy Anaphylaxis Verified 05/28/19 10:53 decongestion Allergy Anaphylaxis Uncoded 05/28/19 10:53 All Systems: The remainder of the systems were reviewed and are negative Physical Examination - Vital Signs Vital Signs: Initial Vital Signs Temp Pulse Resp BP Pulse Ox 97.9 F 106 16 176/96 99 05/27/19 17:13 05/27/19 17:13 05/27/19 17:13 05/27/19 17:13 05/27/19 17:13 Results - Laboratory Findings CBC and BMP: 05/29/19 09:54 05/29/19 09:54 Abnormal lab findings: Abnormal lab results WBC 11.3 K/mcL (4.3-11.1) H 05/27/19 17:41 MCH 26.9 pg (28.0-33.3) L 05/29/19 09:54 PT 13.2 Seconds (9.4-12.1) H 05/28/19 02:46 Chloride 108 mEq/L (98-107) H 05/28/19 02:46 Creatinine 0.68 mg/dL (0.70-1.30) L 05/28/19 02:46 Glucose 113 mg/dL (70-105) H 05/27/19 17:41 POC Glucose 101 mg/dL (70-99) H 05/29/19 05:53 Hemoglobin A1c 6.0 % (-5.6) H 05/28/19 02:46 Phosphorus 2.1 mg/dL (2.7-4.5) L 05/29/19 09:54 AST 9 Units/L (13-39) L 05/29/19 09:54 ALT 6 Units/L (7-52) L 05/29/19 09:54 Serum Total Protein 6.3 g/dL (6.4-8.9) L 05/29/19 09:54 LDL Cholesterol, Calc 112 mg/dL (0-99) H 05/28/19 08:51 HDL Cholesterol 22 mg/dL (40-59) L 05/28/19 08:51 Cholesterol/HDL Ratio 7.2 (0-4.9) H 05/28/19 08:51 Ur Specific [place] > 1.030 (1.010-1.025) H 05/27/19 22:40 Ur Buprenorphine Scrn Positive ng/mL (Cutoff=5) H 05/27/19 22:40 Consult Discharge Plan - Plan Referrals: NONE,PCP [Primary Care Provider] -
--- NOTE | 2019-05-29 13:41 | Neurology Progress Note ---
<Isak Núñez J - Last Filed: 05/29/19 13:38> Date of Encounter: 05/29/19 Time of Encounter: 13:38 Assessment and Plan (1) CVA (cerebral vascular accident) Current Visit: Yes Status: Acute Acute embolic infarct of moderate size in the left frontal lobe and left insular cortex with additional smaller areas of acute infarct involving anterior left frontal lobe Presenting Sx of rt facial droop, slurred speech, with rt arm/leg weakness and difficulty with word finding Sx have improved today. There is residual rt arm/leg weakness but this is improving. Rt facial droop persists but there no speech or language dysfunction found. Otherwise there are no new focal findings. 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; explains cardioembolic phenomena ADITYA today showing PFO with bidirectional shunt; no atheroma or valvular dysfunc tion found, EF 55% Recommending consult cardiology to discuss PFO closure Patient will need long-term anticoagulation for future stroke prevention; defer to I am team to start oral anticoagulation -Of note, the infarct is rather large and I would wait 3-5 days before starting oral anticoagulation to reduce the risk of hemorrhagic conversion Continue with statin therapy Continue with neurological assessments per protocol Recommending PT/OT consultation He will need neurology follow-up at discharge Further recommendations pending discussion of this case with Dr. Aguilar. Qualifiers: CVA mechanism: unspecified Qualified Code(s): I63.9 - Cerebral infarction, unspecified Subjective Principal diagnosis: Acute CVA Interval history: The chart was reviewed, the patient was seen and examined at bedside today. Clinically, he remained stable overnight without any further neurological deficits. I discussed the findings of the echocardiogram finding Lambl's excrescence as well as PFO and inform the patient that this is likely lead to his embolic event. Further, I discussed with him that he will need long-term anticoagulation for future stroke prevention. The patient was given ample time for questioning. Denies any further questions or complaints. Objective - Constitutional Vitals: Temp Pulse Resp BP Pulse Ox 97.6 F 70 20 155/87 98 05/29/19 07:35 05/29/19 07:35 05/29/19 07:35 05/29/19 07:35 05/29/19 07:35 Exam: Examination: General Examination: *CONSTITUTIONAL: Alert and oriented x3, no acute distress *GENERAL APPEARANCE OF PATIENT appears healthy and well groomed *EYES: pupils equal, round, reactive to light and accommodation, conjunctiva clear *CARDIOVASCULAR: RRR, no peripheral edema, distal temperature normal, dorsalis pedis pulses normal. Refer to vital signs * MUSCULOSKELETAL: *GAIT AND STATION: normal, with normal Romberg testing, no abnormalities such as broad base gait or spasticity *ASSESSMENT OF MUSCLE STRENGTH IN THE UPPER AND LOWER EXTREMITIES right deltoid, bicep, tricep, surgery aide strength, hip flexors ,anterior tibialis, dorsoflexion of the foot 4/5 : deltoid, bicep, tricep, surgery aide strength, hip flexors ,anterior tibialis, dorsoflexion of the foot 5/5 *MUSCLE TONE IN THE UPPER AND LOWER EXTREMITIES normal. No abnormal movements, fasciculations or atrophy identified. Neurological: *ORIENTATION to person, situation, time and place *LANGUAGE AND FUNCTION no significant aphasia or dysarthia was noted. *ATTENTION AND CONCENTRATION are normal *LANGUAGE FUNCTION no significant aphasia or dysarthia was noted. *FUND OF KNOWLEDGE aware of current events, past history, vocabulary *MENTAL attention span and concentration normal. *CN II optic fundi were normal, no papilledema noted. *CN III,IV, PERRLA extraocular eye movements were full, no nystagmus and no ptosis noted. *CN V shows normal sensation and jaw opens symmetrically. *CN VII shows normal facial movement symmetrically, upper and lower bilaterally. *CN VIII shows no significant hearing loss on exam *CN IX-X palate elevated symmetrically *CN XI normal strength in the sternocleidomastoid muscles, symmetrical shoulder shrugging. *CN XII tongue protruded in the midline, with normal strength and movement. *SENSORY EXAMINATION light touch intact *REFLEXES: deep tendon reflexes were normal and symmetrical , grade 2/4 diffusely, no pathological reflexes were noted. *CEREBELLAR TESTING normal finger to nose, heel/knee/welsh *PAIN LEVEL 0/10 Results - Laboratory Findings CBC and BMP: 05/29/19 09:54 05/29/19 09:54 Abnormal lab findings: Abnormal lab results WBC 11.3 K/mcL (4.3-11.1) H 05/27/19 17:41 MCH 26.9 pg (28.0-33.3) L 05/29/19 09:54 PT 13.2 Seconds (9.4-12.1) H 05/28/19 02:46 Chloride 108 mEq/L (98-107) H 05/28/19 02:46 Creatinine 0.68 mg/dL (0.70-1.30) L 05/28/19 02:46 Glucose 113 mg/dL (70-105) H 05/27/19 17:41 POC Glucose 101 mg/dL (70-99) H 05/29/19 05:53 Hemoglobin A1c 6.0 % (-5.6) H 05/28/19 02:46 Phosphorus 2.1 mg/dL (2.7-4.5) L 05/29/19 09:54 AST 9 Units/L (13-39) L 05/29/19 09:54 ALT 6 Units/L (7-52) L 05/29/19 09:54 Serum Total Protein 6.3 g/dL (6.4-8.9) L 05/29/19 09:54 LDL Cholesterol, Calc 112 mg/dL (0-99) H 05/28/19 08:51 HDL Cholesterol 22 mg/dL (40-59) L 05/28/19 08:51 Cholesterol/HDL Ratio 7.2 (0-4.9) H 05/28/19 08:51 Ur Specific Harman > 1.030 (1.010-1.025) H 05/27/19 22:40 Ur Buprenorphine Scrn Positive ng/mL (Cutoff=5) H 05/27/19 22:40 Consult Discharge Plan - Plan Referrals: NONE,PCP [Primary Care Provider] - <Margarito Aguilar - Last Filed: 05/29/19 16:15> Date of Encounter: 05/29/19 Assessment and Plan (1) CVA (cerebral vascular accident) Current Visit: Yes Status: Acute I have personally performed a [id number] assessment of the patient and have reviewed the PA/COFFEE BAR ATTENDANT note. My impressions are as follows: I agree with the assessment and plan as documented above by the SLIVER CUTTER. ADITYA reveals bidirectional PFO shunt. This patient certainly benefit from PFO closure. In the meantime I would recommend starting him on anticoagulation. Also discussed lifestyle changes with them. Aggressive management of her stroke risk factors is paramou nt. 25 minutes was spent with this patient today of which greater than 50% of that time spent in [id number] contact which consisted of counseling and coordinating care. We will reevaluate at your request. Qualifiers: CVA mechanism: unspecified Qualified Code(s): I63.9 - Cerebral infarction, unspecified Subjective Interval history: The chart was reviewed, the patient was seen and examined independently. Case was discussed with the SLIVER CUTTER. I agree with his documentation of the history of present illness as above. Objective - Constitutional Vitals: Temp Pulse Resp BP Pulse Ox 97.5 F L 93 18 155/87 98 05/29/19 14:00 05/29/19 14:00 05/29/19 14:00 05/29/19 07:35 05/29/19 07:35 Exam: I have personally performed a [id number] assessment of the patient and have reviewed the PA/COFFEE BAR ATTENDANT note. My impressions are as follows: I agree with the neurologic examination is documented above. Results - Laboratory Findings CBC and BMP: 05/29/19 09:54 05/29/19 09:54 Abnormal lab findings: Abnormal lab results WBC 11.3 K/mcL (4.3-11.1) H 05/27/19 17:41 MCH 26.9 pg (28.0-33.3) L 05/29/19 09:54 PT 13.2 Seconds (9.4-12.1) H 05/28/19 02:46 Chloride 108 mEq/L (98-107) H 05/28/19 02:46 Creatinine 0.68 mg/dL (0.70-1.30) L 05/28/19 02:46 Glucose 113 mg/dL (70-105) H 05/27/19 17:41 POC Glucose 101 mg/dL (70-99) H 05/29/19 05:53 Hemoglobin A1c 6.0 % (-5.6) H 05/28/19 02:46 Phosphorus 2.1 mg/dL (2.7-4.5) L 05/29/19 09:54 AST 9 Units/L (13-39) L 05/29/19 09:54 ALT 6 Units/L (7-52) L 05/29/19 09:54 Serum Total Protein 6.3 g/dL (6.4-8.9) L 05/29/19 09:54 LDL Cholesterol, Calc 112 mg/dL (0-99) H 05/28/19 08:51 HDL Cholesterol 22 mg/dL (40-59) L 05/28/19 08:51 Cholesterol/HDL Ratio 7.2 (0-4.9) H 05/28/19 08:51 Ur Specific Harman > 1.030 (1.010-1.025) H 05/27/19 22:40 Ur Buprenorphine Scrn Positive ng/mL (Cutoff=5) H 05/27/19 22:40
[2019-05-30] MEDS: *HR* Heparin 5,000 UNIT/ML VIAL SQ SCH (06:41)
[2019-05-30 09:04] LABS: Hematocrit 38.2 % (37.5-50.1); Hemoglobin 12.7 g/dL (12.9-16.9); Mean Corpuscular HGB Conc 33.2 g/dL (31.6-35.5); Mean Corpuscular Hemoglobin 27.5 pg (28.0-33.3); Mean Corpuscular Volume 82.9 fL (83.0-100.0); Platelet Count 235 K/mcL (140-400); Red Blood Count 4.61 M/mcL (4.19-5.50); White Blood Count 9.4 K/mcL (4.3-11.1)
[2019-05-30 09:25] LABS: Alanine Aminotransferase 8 Units/L (7-52); Albumin 3.5 g/dL (3.5-5.7); Albumin/Globulin Ratio 1.3 (1.1-2.2); Alkaline Phosphatase 60 Units/L (34-104); Aspartate Amino Transferase 12 Units/L (13-39); BUN/Creatinine Ratio 16 (6-26); Bilirubin,Total 0.8 mg/dL (0.3-1.0); Blood Urea Nitrogen 12 mg/dL (6-20); Calcium 9.1 mg/dL (8.6-10.3); Carbon Dioxide 24 mEq/L (23-29); Chloride 107 mEq/L (98-107); Globulin 2.7 g/dL (2.4-3.5); Glucose 89 mg/dL (70-105); Magnesium 1.9 mg/dL (1.6-2.6); Osmolality,Calculated 287 (280-300); Phosphorous 3.1 mg/dL (2.7-4.5); Potassium 3.6 mEq/L (3.5-5.1); Sodium 139 mEq/L (136-145); Total Protein 6.2 g/dL (6.4-8.9); eGFR For African Americans > 60 (> 60); eGFR For Non-African Americans > 60 (> 60)
[2019-05-30] MEDS: Aspirin 81 MG TAB.CHEW PO SCH (09:58)
[2019-05-30] MEDS: Nicotine 21 MG PATCH.TD24 TD SCH (09:58)
--- NOTE | 2019-05-30 10:31 | Internal Med Progress Note ---
Hospitalist Progress Note - Encounter Date of Encounter: 05/30/19 Time of Encounter: 10:27 - Subjective Interval History: the patient was seen and examined at bedside. discussed with patient in length about goals of health plan consulted cardiology again as per neurology recommendation discussed with patient about option of anticoagualtion, the patient prefer newer noval agent over warfarin - Exam Vitals: Temp Pulse Resp BP Pulse Ox 98.1 F 82 18 136/84 97 05/30/19 08:00 05/30/19 10:01 05/30/19 10:01 05/30/19 10:01 05/30/19 10:14 Exam: Physical examination: Gen.: Patient is alert , mildly aphasic not in respiratory distress of pain HEENT: perrla , EOMI, no thyroid gland enlargement, no neck mass, supple neck Heart: S1 and S2 elva, normal sinus rhythm, no cardiac murmur no gallop rhythm Chest: Air entry equal bilaterally, clear chest, no wheezing, crackles or crepitation Abdomen: Soft nontender nondistended positive bowel sounds, no organomegaly Extremities: No pitting edema, peripheral pulses palpable, no cyanosis tenderness Neuro: right facial droop with right sided weakness , DVT Prophylaxis: heparin - Summary of Assessment and Plan Summary of Assessment and Plan: (1) acute Ischemic stroke Current Visit: Yes Status: Acute Assessment and plan: MRI of head show: 1. Moderate size acute infarct involving the left frontal lobe and left insular cortex. Additional smaller areas of acute infarct involving the anterior left frontal lobe. 2. Regional sulcal effacement with mass effect on the left lateral ventricle. No evidence of midline shift. 3. Otherwise, no acute intra cranial abnormality. pass swallow on aspirin and high intensity statin A1c 6 indicate pre-diabetic on stroke protocol. Consult PT/OT/ST, and neurology. ADITYA show PFO with bidirectional shunt on color doppler, ef 55% CTA head and neck unremarkable check homocysteine, B12 and TSH wnl consult cardiology to discuss PFO GI and dvt PPX as per neurology: Patient will need long-term anticoagulation for future stroke prevention; -the infarct is rather large and I would wait 3-5 days before starting oral anticoagulation to reduce the risk of hemorrhagic conversion (2) Illicit drug use Current Visit: Yes Status: Chronic Assessment and plan: 1. UDS negative except for Suboxone. 3. ef 55% on ADITYA (3) DVT prophylaxis Current Visit: Yes Status: Acute Assessment and plan: 1. Heparin SQ. smoking abuse on nicotine patch - Time Spent with Patient Total time spent is greater than 50% in coordination of care (as documented) at patient's floor/unit and/or counseling patient: Internal Medicine: Result - Labs CBC & Chem 7: 05/30/19 08:19 05/30/19 08:19 Labs: Short CBC 05/30/19 Range/Units 08:19 WBC 9.4 (4.3-11.1) K/mcL Hgb 12.7 L (12.9-16.9) g/dL Hct 38.2 (37.5-50.1) % Plt Count 235 (140-400) K/mcL BMP 05/29/19 05/30/19 09:54 08:19 Sodium 140 139 Potassium 4.0 3.6 Chloride 107 107 Carbon Dioxide 23 24 BUN 13 12 Creatinine 0.71 0.73 Glucose 93 89 Calcium 8.9 9.1 Liver Function 05/29/19 05/30/19 Range/Units 09:54 08:19 Total Bilirubin 0.7 0.8 (0.3-1.0) mg/dL AST 9 L 12 L (13-39) Units/L ALT 6 L 8 (7-52) Units/L Alkaline Phosphatase 62 60 (34-104) Units/L Albumin 3.6 3.5 (3.5-5.7) g/dL - ABG Interpretation ABG results: PT/INR, D-dimer PT 13.2 Seconds (9.4-12.1) H 05/28/19 02:46 Consult Discharge Plan - Plan Referrals: NONE,PCP [Primary Care Provider] -
--- NOTE | 2019-05-30 12:12 | Discharge Summary ---
Orders not resulted at time of discharge: Pending orders 05/28/19 09:43 Homocysteine Routine 05/28/19 14:12 Antithrombin III, Activity Routine Factor V Leiden Routine Factor VIII, Activity Routine Lupus Anticoagulant Panel Routine Protein C Antigen, Total Routine Protein S Antigen, Total Routine Prothrombin [id number] Mutation Routine Date of Encounter: 05/30/19 Time of Encounter: 12:09 - Discharge Diagnosis (1) CVA (cerebral vascular accident) Priority: Primary Status: Acute Qualifiers: CVA mechanism: unspecified Qualified Code(s): I63.9 - Cerebral infarction, unspecified Hospital course: Mr. nKox is a 44 year old male with history of smoking abuse and substance abuse was admitted because of right-sided weakness and was found to have acute ischemic stroke on MRI of the head, CTA head and neck are unremarkable however ADITYA showed PFO which could be the cause of cryptogenic stroke, patient started on aspirin and statin urologist consult to recommend anticoagulation at least 5 days after the onset of the stroke because it is large and there is risk of hemorrhagic stroke transformation. Also veneer jointer helper consulted Patient left AMA , I discussed with the patient in length risk of leaving AMA. I gave him prescription of aspirin and statin, I stressed on him to Follow-Up with a Neurologist and Back Gray Cloth Washer As Soon As Possible for Possible Closure of PFO - Time Spent with Patient Total time spent providing and/or coordinating discharge services: Time spent: Greater than 30 minutes - Discharge Medications Prescriptions: No Action No Known Home Drugs 1 each .ROUTE AD each Home Medications: No Known Home Drugs 05/28/19 [History] Allergies/Adverse Reactions: Allergy/AdvReac Type Severity Reaction Status Date / Time sulfamethoxazole Allergy Anaphylaxis Verified 05/28/19 10:53 [From Bactrim] trimethoprim [From Bactrim] Allergy Anaphylaxis Verified 05/28/19 10:53 decongestion Allergy Anaphylaxis Uncoded 05/28/19 10:53 Date of admission: 05/28/19 02:16 Primary care physician: PCP NONE Consults: 05/28/19 02:16 Consult to Neurology [CONS] Routine Consulting Provider: [facility] Reason for Consult: stroke -- frontal lobe; former IVDA Call Completed: No Consult to Occupational Therapy [CONS] Routine Comment: Evaluate, develop and implement POC Reason for Consult: stroke; RUE paresis Does patient have active BEDREST order?: No Is patient medically & hemodynamically stable?: Yes Patient assessed for mobility or mobilized this visit?: No Consult to Physical Therapy [CONS] Routine Comment: Evaluate, develop and implement POC Reason for Consult: stroke; right sided paresis Does patient have active BEDREST order?: No Is patient medically & hemodynamically stable?: Yes Patient assessed for mobility or mobilized this visit?: No Consult to District Sales Representative [CONS] Routine Reason for SW Consult: d/c planning Consult to Speech Therapy [CONS] Routine Comment: Evaluate, develop and implement POC Reason for Consult: stroke; failed dysphagia screen; dysarthria Call Completed: No - Constitutional Vitals: Temp Pulse Resp BP Pulse Ox 98.1 F 95 21 150/95 97 05/30/19 08:00 05/30/19 11:19 05/30/19 11:19 05/30/19 11:19 05/30/19 10:14 General appearance: Present: cooperative, A&O X 3, pleasant, no acute distress, answers questions appropriately Exam: patient left AMA - Patient Status Disposition: Home, Self-Care Condition: Fair - Discharge Instructions Follow Up With: NONE,PCP [Primary Care Provider] -
--- NOTE | 2019-05-30 12:20 | Event Note ---
Date of Encounter: 05/30/19 Time of Encounter: 12:17 - Cardiology Event Note Cardiology consulted for PFO per ADITYA. Patient admitted with CVA. Discussed and reviewed with , will arrange outpatient follow up with for evaluation for possible PFO closure. However, patient did have laml's excruscence noted on TTE and is recommend for long-term anticoagulation per neurology, so it is unclear if patient would be a candidate for PFO closure, since he already has recommendations for long-term anticoagulation.
[2019-05-30 16:20] VITALS: BP 123/72
[2019-06-01 13:30] LABS: Prothrombin G20210A Specimen WHOLE BLOOD
[2019-06-01 17:51] LABS: APTT (LE Anticoag) 43 sec (32-48); Diluted Russell Viper Venom 33 sec (33-44); PT (LE-Anticoag) 13.6 sec (12.0-15.5)
[2019-06-02 10:33] LABS: Prothrombin G20210A Mut Result NEGATIVE
[2019-06-02 15:10] LABS: FACV Specimen WHOLE BLOOD
[2019-06-02 15:17] LABS: Fac V Leiden R506Q Mut Result NEGATIVE
== END 2019-05-30 12:15 | disposition home or self-care (01) | DRG 45 ==
LOC: 2NENU 17:12 → EMEROOARM 17:12 → 2NENU 05-28 00:52
PROVIDERS: ADMIT Pediatrics; ATTEND Pediatrics